=== PATIENT | female | born 1950 | race Caucasian/White ===

== ENCOUNTER 2017-10-07 12:40 | Inpatient (IN) | payer MEDICARE, OTHER ==
[~2017-10-07] VITALS: Ht 157.5 cm; Wt 58.6 kg
[2017-10-07] VITALS (9 sets, daily range): BP systolic 127–214; BP diastolic 77–104
--- NOTE | ~2017-10-07 | CN ---
PATIENT NAME:MARITA PAULINO MEDICAL RECORD: [id number] : 52 LOCATION:[facility] ADMIT DATE: 10/09/17 ACCOUNT: [id number] CONSULTING PHYSICIAN: GUS GERMAN MD REFERRING PHYSICIAN: OLLIE AKBAR MD DATE OF CONSULTATION: 10/08/2017 HISTORY OF PRESENT ILLNESS: A 67-year-old female with no known history of coronary artery disease, she has a hypertension that is more difficult to control as of late, requiring 3 medications, admitted with hypertension and angina. She states over the past month has intermittent chest tightness. PAST MEDICAL HISTORY: 1. History of hypertension. 2. Scoliosis. 3. Right AKA. 4. Dyslipidemia. SOCIAL HISTORY: . Nonsmoker and nondrinker. She is able to take care of her ADLs despite a right prosthesis. REVIEW OF SYSTEMS,: The patient reports easy bruising but reports no swollen glands. The patient reports no fever, no night sweats, no significant weight gain, no significant weight loss. No significant exercise tolerance. The patient reports no dry eyes, no irritation, no vision change. Patient reports no difficulty hearing and no ear pain. Patient reports no frequent nose bleeds or nose and sinus problems. Patient reports on arm pain on exertion. No shortness of breath while lying down. No history of heart murmur. Patient reports no cough, no wheezing or coughing up blood. Patient reports no abdominal pain, no vomiting. Normal appetite. No diarrhea and not vomiting blood. No nausea and no constipation. Patient reports no incontinence. No difficulty urinating. No hematuria. No increased frequency. Patient reports no muscle aches. No weakness, no arthralgias, no back pain. No swelling of the extremities. Patient reports no abnormal mole, no jaundice, no rashes. Reports no loss of consciousness. No weakness and no numbness. No seizures, dizziness, or headaches. The patient reports no depression, no sleep disturbance, feeling safe in a relationship and no alcohol abuse. Patient reports on fatigue. Reports no runny nose or sinus pressure. No itching, no hives, and no frequent sneezing. PHYSICAL EXAMINATION: GENERAL: A pleasant female in no acute distress. VITAL SIGNS: 139/99, pulse 116 and regular. HEENT: Normocephalic, atraumatic. NECK: No bruits noted. HEART: Regular. II/ systolic ejection murmur, somewhat tachycardic. LUNGS: Good air excursion. ABDOMEN: Soft, nontender. Questionable left abdominal bruit. EXTREMITIES: Pulses are 2+ on the left and prosthesis on the right. IMPRESSION: Difficult to control hypertension on 3 medications. PLAN: We will plan for cardiac catheterization as well as renal arteriography. TRANSINT:[id number] Voice Confirmation ID: [id number] DOCUMENT ID: [id number] CONSULT REPORT [id number] MARITA PAULINO,GUS Howard MD at 1116 CC: [id number] DICTATION DATE: 10/08/17 0853 REGISTERED PHARMACY TECHNICIAN: 10/08/17 0945 ADM IN [place] [id number] [place] [address]
--- NOTE | ~2017-10-07 | HEMODYNAMI ---
PATIENT:MARITA PAULINO MEDICAL RECORD: [id number] : 52 LOCATION:[facility] [address] [facility] [id number] ADMISSION DATE: 10/07/17 Generatedon:10/08/201714:33 Patient name: MARITA PAULINO Patient #: [id number] SSN: DO B: 1950 Date of study: 10/08/2017 Page: Of Hemodynamic Procedure Report Patient Data Patient Demographics Procedure consent was obtained First Name: MARITA Gender: Female Last Name: LORA : 1950 Middle Initial: JAH Age: 67 year(s) Patient #: [id number] Race: Unknown Additional ID: [id number] Contact details [address]: [address] [place] [address] State: [place] City: [place] Zip code: [address] Past Medical History Allergies: No known allergies Admission Admission Data Admission Date: 10/07/2017 Admission Time: 16:24 Room #: D2123 Lab Results Lab Result Date: 10/08/2017 Lab Result Time: 0:00 Biochemistry Name Units Result Min Max BUN mg/dl 17 --(---*)-- 7 18 Creatinine mg/dl 0.9 --(-*--)-- 0.6 1.3 CBC Name Units Result Min Max Hemoglobin g/dl 12.1 *-(----)-- 13.5 17.5 Procedure Procedure Types Cath Procedure Diagnostic Procedure [facility] w/Coronaries Sedation Charges Moderate Sedation up to 15 minutes Procedure Description Procedure Date Procedure Date: 10/08/2017 Procedure Start Time: 14:16 Procedure End Time: 14:33 Procedure Staff Name Function Yang Gomez MD Performing Physician Kerri Brewer RT Monitor Oliva Mancia RT Scrub Karan Prieto RN Nurse Procedure Data Cath Procedure Fluoroscopy Diagnostic fluoroscopy Total fluoroscopy Time: 2.4 time: 2.4 min min Diagnostic fluoroscopy Total fluoroscopy dose: 369 dose: 369 mGy mGy Contrast Material Contrast Material Type Amount (ml) Isovue 370 63 Entry Location Entry Primary Successful Side Size Upsize Upsize Entry Closure Succes sful Closure Location (Fr) 1 (Fr) 2 (Fr) Remarks Device Remarks Femoral Left 5 Fr Exoseal artery Estimated blood loss: 5 ml Diagnostic catheters Device Type Used For End Catheter Placement MULTIPACK JL 4.0 5Fr Left Coronary catheter Angiography MULTIPACK 3DRC 5Fr Right Coronary catheter Angiography MULTIPACK 3DRC 5Fr Renal catheter arteriography with flush -selective MULTIPACK Pigtail 5 Fr LV Angiography catheter Procedure Complications No complications Procedure Medications Medication Administration Route Dosage 0.9% NaCl I.V. 100 ml/hr Oxygen etCO2 Nasal cannula 2 l/min Heparin Flush Bag added to field 2 bags (1000units/500ml NS) Lidocaine 2% added to field 20 Versed I.V. 2 mg Fentanyl I.V. 100 mcg Lopressor I.V. 5 mg Versed I.V. 2 mg Hemodynamics Rest HGB: 12.1 (g/dl) Heart Rate: 142 (bpm) Pressure Samples Time Site Value (mmHg) Purpose Heart Use Rate(bpm) 14:24 LV 151/4,7 EDP 76 Gradients Valve Time Site Site Mean SEP/DFP Peak To Heart Use 1 2 (mmHg) (sec/min) Peak Rate (mmHg) (bpm) Aortic 14:25 LV AO 91 Snapshots Pre Cath Intra NCS Post Cath Vital Signs Time Heart Resp SPO2 etCO2 NIBP (mmHg) Rhythm Pain Sedation Rate (ipm) (%) (mmHg) Status Level (bpm) 13:56:51 122 27 100 27 150/106(120) ST 0 (11) 10(A) , No pain 14:01:35 139 13 100 36.8 140/95(113) ST 0 (11) 10(A) , No pain 14:06:18 135 18 100 31.5 133/84(108) ST 0 (11) 10(A) , No pain 14:10:56 104 14 99 0 112/81(94) ST 0 (11) 10(A) , No pain 14:15:33 91 14 99 27.7 112/77(100) NSR 0 (11) 10(A) , No pain 14:20:07 109 19 100 25.5 130/92(113) NSR 0 (11) 10(A) , No pain 14:24:48 118 15 100 37.5 135/84(101) NSR 0 (11) 10(A) , No pain 14:29:30 113 9 99 33 117/75(91) NSR 0 (11) 10(A) , No pain Medications Time Medication Route Dose Verified Delivered Reason Notes Eff ectiveness by by 13:55:15 0.9% NaCl I.V. 100 Karan Karan Per ml/hr Conner Prieto physician RN RN 13:55:28 Oxygen etCO2 2 Karan Karan Per Nasal l/min Conner Prieto physician cannula RN RN 13:55:38 Heparin Flush added 2 Karan Karan used for Bag to bags Lorigan Lorigan procedure (1000units/500ml field RN RN NS) 13:55:49 Lidocaine 2% added 20ml Karan Karan for local to vial Lorigan Lorigan anesthetic field RN RN 14:05:43 Versed I.V. 2 mg Karan Karan for Lorigan Lorigan sedation RN RN 14:05:50 Fentanyl I.V. 100 Karan Karan for mcg Lorigan Lorigan sedation RN RN 14:11:18 Lopressor I.V. 5 mg Karan Karan for Lorigan Lorigan arrhythmia RN RN 14:18:02 Versed I.V. 2 mg Karan Karan for Lorigan Lorigan sedation RN overhauler helper Log Time Note 13:30:29 Time tracking: Regular hours (M-F 7:00 - 5:00) 13:30:33 Plan of Care:Hemodynamics will remain stable., Cardiac rhythm will remain stable., Comfort level will be maintained., Respiratory function will remain adequate., Patient/ family verbilizes understanding of procedure., Procedure tolerated without complication., Recovers from procedure without complications.. 13:30:35 Signed procedure consent form obtained from patient. 13:32:55 H&P Date Dictated: 10/07/2017 Within 30 days and on chart.. 13:33:11 Patient allergic to No known allergies 13:33:45 Lab Result : BUN 17 mg/dl 13:33:45 Lab Result : Hemoglobin 12.1 g/dl 13:33:45 Lab Result : Creatinine 0.9 mg/dl 13:35:36 Karan Prieto RN sent for patient. Start room use. 13:49:21 Patient received from PCU to CCL 1 Alert and oriented. Tansferred to table in Supine position. 13:49:22 Warm blankets applied, and santa hugger turned on for patient comfort. 13:49:22 Correct patient and procedure confirmed by team. 13:49:23 ECG and BP/O2 sat monitors applied to patient. 13:49:24 Full Disclosure recording started 13:55:15 0.9% NaCl 100 ml/hr I.V. was administered by Karan Prieto RN; Per physician; 13:55:28 Oxygen 2 l/min etCO2 Nasal cannula was administered by Karan Prieto RN; Per physician; 13:55:38 Heparin Flush Bag (1000units/500ml NS) 2 bags added to field was administered by Karan Prieto RN; used for procedure; 13:55:49 Lidocaine 2% 20ml vial added to field was administered by Karan Prieto RN; for local anesthetic; 13:55:53 Vital chart was started 13:58:41 Baseline sample Acquired. 13:58:44 Rhythm: sinus tachycardia 13:58:48 Pre-procedure instructions explained to patient. 13:58:49 Pre-op teaching completed and patient verbalized understanding. 13:58:58 Family in patients room. 13:59:00 Patient NPO since Midnight. 14:00:57 Is the patient allergic to Iodine/contrast media? No. 14:00:59 Is patient on blood thinner?Yes 14:01:01 ACC The patient was administered the following blood thiners within the last 24 hours: ACCPlavix 14:01:03 Patient diabetic? No. 14:01:07 Previous problem with sedation/anesthesia? No ? 14:01:09 Snore? Yes 14:01:10 Sleep apnea? No 14:01:11 Deviated septum? No 14:01:11 Opens mouth fully? Yes 14:01:12 Sticks out tongue? Yes 14:01:14 Airway obstruction? No ? 14:01:15 Dentures? No ? 14:01:19 Pre procedure: right dorsailis pedis pulse 2+ Normal; easily identifiable; not easily obliterated 14:01:21 Patient pain scale 0/10 ?. 14:01:27 IV patent on arrival in left forearm with 0.9% NaCl at [facility]. 14:01:30 Lab results completed and on chart. 14:01:38 Left groin area was prepped with chlora-prep and draped in sterile fashion 14:01:39 Alarms reviewed by R. N. 14:01:39 Sharps counted by scrub and verified by R.N. 14:01:47 Use device set Femoral Dx 14:01:48 ACIST Syringe (16436) opened to sterile field. 14:01:48 Bag Decanter (2002S) opened to sterile field. 14:01:49 Medline Cath Pack ([id number]) opened to sterile field. 14:01:49 DIAGNOSTIC WIRE .035 260cm J wire (467650) opened to sterile field. 14:01:50 ACIST Hand Control (87873) opened to sterile field. 14:01:51 ACIST Manifold (28326) opened to sterile field. 14:01:51 DIAGNOSTIC Multipack 5Fr catheter set (CK2510) opened to sterile field. 14:01:52 Tegaderm 4 x 4 (1626W) opened to sterile field. 14:01:53 SHEATH Prelude 5Fr 0.035 (ROG-2O-52-035) opened to sterile field. 14:03:49 Zero performed for pressure channel P1 14:05:12 Final Timeout: patient, procedure, and site verified with staff and physician. All members of the team are in agreement. 14:05:19 Left groin site verified by team. 14:05:22 Physical assessment completed. ASA score P 2 - A patient with mild systemic disease as per Yang Gomez MD. 14:05:26 Sedation plan: IV Moderate Sedation Medication:Versed, Fentanyl 14:05:43 Versed 2 mg I.V. was administered by Karan Prieto RN; for sedation; 14:05:50 Fentanyl 100 mcg I.V. was administered by Karan Prieto RN; for sedation; 14:11:18 Lopressor 5 mg I.V. was administered by Karan Prieto RN; for arrhythmia; 14:16:09 Procedure started. 14:16:15 Local anesthetic to left femerol artery with Lidocaine 2% by Yang Gomez MD.INITIAL ACCESS ONLY 14:17:23 A 5 Fr sheath was inserted into the Left Femoral artery 14:17:50 A MULTIPACK JL 4.0 5Fr catheter was advanced over the wire and used for Left Coronary Angiography. 14:18:02 Versed 2 mg I.V. was administered by Karan Prieto RN; for sedation; 14:20:05 Catheter removed. 14:20:13 A MULTIPACK 3DRC 5Fr catheter was advanced over the wire and used for Right Coronary Angiography. 14:22:02 A MULTIPACK 3DRC 5Fr catheter was advanced over the wire and used for Renal arteriography with flush -selective. 14:22:54 Catheter removed. 14:23:00 A MULTIPACK Pigtail 5 Fr catheter was advanced over the wire and used for LV Angiography. 14:26:05 Catheter removed. 14:26:26 Sheath removed intact; hemostasis achieved with Exoseal to the Left Femoral artery. 14:26:27 Procedure ended.(Physican Out) 14:27:32 Fluoroscopy time 02.40 minutes. 14::41 Fluoroscopy dose: 369 mGy 14::41 Flurop Dose total: 369 14:27:56 Contrast amount:Isovue 370 63ml. 14:27:58 Sharps counted by scrub and verified by R.N. 14:28:00 Insertion/operative site no bleeding no hematoma. 14:28:02 Post-op/insertion site Left Femoral artery dressed using a 4 x 4 and Tegaderm. 14:28:06 Post left femerol artery:stable, clean and dry 14:28:08 Post Procedure Pulses reassessed and unchanged 14:28:20 Post procedure rhythm: unchanged. 14:28:25 Estimated blood loss: 5 ml 14:28:27 Post procedure instruction explained to patient.Patient verbalizes understanding. 14:28:35 Patient needs reinforcement of post procedure teaching. 14:28:46 Procedure type changed to Cath procedure, Diagnostic procedure, LHC, LHC w/Coronaries, Sedation Charges, Moderate Sedation up to 15 minutes 14:28:51 EXOSEAL 5Fr (EX500) opened to sterile field. 14:29:15 Procedure Complication : No complications 14:29:17 See physician's report for complete and final results. 14:30:07 Procedure and supply charges have been captured, reviewed, submitted and are correct. 14:33:04 Vital chart was stopped 14:33:07 Report given to PCU. 14:33:09 Patient transfered to PCU with Bed. 14:33:21 Procedure ended. 14:33:21 Full Disclosure recording stopped 14:33:24 End room use (Document Last) Device Usage Item Name Manufacture Quantity Catalog Number Hospital Part Current M inimal Lot# / Charge Number Stock Stock Serial# Code ACIST Syringe Acist 1 75153 795410 296568 343093 2 0 (33154) [employer] Bag Decanter Microtek 1 2001S 179354 44691 119834 5 () Medical Inc. Medline Cath Cardinal 1 [id number] 084607 94561 362601 5 Pack Health ([id number]) DIAGNOSTIC WIRE [facility] 1 472732 902551 172285 115725 3 0 .035 260cm J wire (564750) ACIST Hand Acist 1 25442 819699 450405 875711 5 Control (30082) [employer] Inc ACIST Manifold Acist 1 75920 915645 043983 364445 5 (76469) [employer] Inc DIAGNOSTIC Cardinal 1 HT3206 149436 67255 611480 3 0 Multipack 5Fr Health catheter set (TR3409) Tegaderm 4 x 4 3M 1 1626W 317547 911174 696949 5 (1626W) SHEATH Prelude Merit 1 [id number]-40-035 909990 638670 624440 5 5Fr 0.035 Medical ([id number]-1G-14-035) MULTIPACK JL Cardinal 1 636296 5 4.0 5Fr Health catheter MULTIPACK 3DRC Cardinal 1 099000 5 5Fr catheter Health MULTIPACK Cardinal 1 017837 5 Pigtail 5 Fr Health catheter EXOSEAL 5Fr Cardinal 1 EX500 792616 938113 657890 1 0 (EX500) Health Signature Audit [place] Stage Time Signature Unsigned Intra-Procedure 10/08/2017 Kerri 2:33:37 PM Counts RT(R) Signatures Monitor : Kerri Signature : Counts RT Date : Time : [address] [address]
--- NOTE | ~2017-10-07 | TEE ---
PATIENT:MARITA PAULINO MEDICAL RECORD: [id number] LOCATION:[place] [address] AGE OF PATIENT: 67 ADMISSION DATE: 10/09/17 SEX: F REFERRING PHYSICIAN: INTERPRETING PHYSICIAN: NICK LACEY MD TRANSESOPHAGEAL ECHOCARDIOGRAM Date: 10/13/17 CANDIDA CHARGE Y INDICATIONS: CABG PREMEDICATIONS: PATIENT'S RESPONSE PROCEDURE DOPPLER MEASUREMENTS: LVIT LA PA RA LVOT RVOT Asc. Ao AV Gradient Peak AV Mean AV Area MV Gradient Peak MV Mean MV Area INTERPRETATION: LVD: 2.3 LVS: 1.1 Doppler: 2-D: COLOR FLOW DOPPLER NORMAL SALINE STUDY: MISCELLANOUS: DIAGNOSIS: PLAN: Drug Safety Scientist:3 Dr. [employer] Programmer: Felix DOMINGUEZ COMMENTS: DATE OF SERVICE: 10/13/2017 PROCEDURE: Transesophageal echo for evaluation of valvular structures during bypass surgery. FINDINGS: 1. Left ventricular chamber size is within normal limits. Left ventricular systolic function is normal. Overall ejection fraction estimated at 60%. 2. Left atrium, right atrium, and right ventricular chamber sizes are within TRANSESOPHAGEAL ECHOCARDIOGRAM REPORT [id number] MARITA PAULINO normal limits. 3. Valvular structures have normal structure and motion. 4. Doppler interrogation reveals mild mitral regurgitation, mild aortic insufficiency. No other valvular insufficiency or stenosis. 5. No evidence of pericardial effusion or left ventricular thrombus. TRANSINT:[id number] Voice Confirmation ID: [id number] DOCUMENT ID: [id number] at 1208 CC: [id number] DICTATION DATE: 10/14/17 1101 MATTRESS AND FOUNDATION SEWER: 10/14/17 1511 ADM IN [place] [id number] [place] [address]
--- NOTE | ~2017-10-07 | OP ---
PATIENT NAME: MARITA PAULINO MEDICAL RECORD: [id number] :52 LOCATION:[facility] ADMISSION DATE:10/09/17 SURGEON: MARKY RICHTER MD DATE OF OPERATION: 10/13/2017 SURGEON: Marky Richter MD TOP FLAVOR ATTENDANT: NOBLE Ballesteros OPERATION PERFORMED: Coronary artery bypass graft times 4 (left internal mammary artery to LAD, reverse saphenous vein graft from aorta to first diagonal, aorta to proximal branch obtuse marginal, and aorta to right coronary artery). PREOPERATIVE DIAGNOSIS: Coronary artery disease. POSTOPERATIVE DIAGNOSIS: Coronary artery disease. ANESTHESIA: General endotracheal anesthesia. ESTIMATED BLOOD LOSS: Total cardiopulmonary bypass with Cell Saver retransfusion and 1 unit packed red blood cells, preoperative anemia. SPECIMENS: None. CONDITION: Stable. DISPOSITION: CV ICU. COMPLICATIONS: None. OPERATIVE FINDINGS: 1. Transesophageal echocardiography revealed good contractility with no valvular incompetence or stenosis. 2. Greater saphenous vein was a dual system with a larger branch more posterior requiring several bridging incisions, but was adequate with the smallest caliber portion used for the diagonal graft. 3. Internal mammary artery was a good conduit, the LAD was a 1.25 mm vessel with severe proximal disease. Anastomosis with 8-0 Prolene. Good Doppler signal after anastomosis and after reversal of heparin. 4. Diagonal was a 1.25 mm vessel with severe disease. 5. Proximal branch obtuse marginal 1.5 mm vessel with severe disease. 6. Right coronary artery 1.75 mm vessel with severe disease, the posterior descending artery was significantly smaller. 7. Supraventricular tachycardia after induction of anesthesia that eventually resolved and after separation from cardiopulmonary bypass despite amiodarone, responded to esmolol. OPERATIVE INDICATION: The patient with previous right below-knee amputation and left leg with some chronic contracture due to spina bifida with unstable angina and multivessel coronary artery disease. OPERATIVE DESCRIPTION OF PROCEDURE: The patient was brought to the operating suite. General anesthesia was obtained, the patient was prepped and draped. Greater saphenous vein was harvested in the left leg using bridging incisions. OPERATIVE REPORT [id number] MARITA PAULINO Side branches were clipped. After removal, leg was irrigated and closed in 2 layers. Median sternotomy incision was made. Subcutaneous tissue was divided by electrocautery. The sternum was divided with a saw. The left hemisternum was elevated. Left pleural cavity was entered. Left internal mammary artery and vein was taken as a pedicle graft. Sternal retractor was placed. Pericardium was opened. Heparin was given. Aorta was cannulated. Dual stage venous cannula was inserted. The patient was placed on cardiopulmonary bypass after activated clotting time was appropriately elevated. The internal mammary artery was clipped distally and made ready for anastomosis. The site for distal anastomosis was selected. The patient was cooled. Crossclamp was placed. Cardioplegia was given through the aortic root vent and repeated at 15-minute intervals with cross clamp time. Distal anastomosis was performed in standard technique. Proximal anastomosis in single cross-clamp technique. Aortic root was de-aired by removing the cross clamp, venting the root, tying the proximal anastomoses, and then restoring the flow after deairing the vein grafts. Proximal and distal anastomotic sites were inspected for bleeding. The patient resumed a spontaneous rhythm after defibrillation and was hemodynamically stable, weaned from cardiopulmonary bypass after full rewarming and was stable. The patient was decannulated. The cannula sites were oversewn. Protamine was given. Thorough irrigation was undertaken. A drain was placed in the mediastinum and left pleural cavity. A ventricular pacing wire was placed. Left chest was evacuated and irrigated. The internal mammary harvest site was assured to be hemostatic. Pericardial fat was loosely reapproximated in the midline. Sternum was closed with wires. Fascia was closed. Subcutaneous tissue was closed. Skin was closed. Dermabond was placed. The needle and sponge counts reported correct. The patient was taken to the ICU in stable condition. TRANSINT:[id number] Voice Confirmation ID: [id number] DOCUMENT ID: [id number] MARKY RICHTER MD at 0735 CC: GUS GERMAN MD [id number] DICTATION DATE: 10/13/17 1404 EDUCATION COURSES SALES REPRESENTATIVE: 10/13/17 1426 ADM IN [place] [id number]
--- NOTE | ~2017-10-07 | OP ---
PATIENT NAME: MARITA PAULINO MEDICAL RECORD: [id number] :52 LOCATION:[facility] ADMISSION DATE:10/09/17 SURGEON: GUS GERMAN MD DATE OF OPERATION: 10/08/2017 PROCEDURE: Left heart catheterization, selective coronary angiography plus renal arteries, left femoral artery approach. CATHETERS: A 5-Upper Sorbian sheath, 5/4 left and right Sergio, 5/4 pig. The procedure was well tolerated. The patient was returned to the figueroa. Sheath removed. ExoSeal device placed. FINDINGS: Left ventriculography in 30-degree MCNEILL view: Normal wall motion, normal systolic function. CORONARY ANATOMY: LEFT MAIN: Left main is free of disease. LAD: The takeoff of the first diagonal shows a tight stenosis of 90% and then multiple stenoses down the mid portion of 80%. CIRCUMFLEX: Has discrete 90% stenosis in its mid portion. RIGHT CORONARY ARTERY: Right coronary artery has an ostial stenosis of 90%. The right renal artery was selectively engaged. It shows a smooth-walled right renal artery with no evidence of stenosis left. The left renal artery was selectively engaged. It shows a smooth-walled vessel, free of disease. IMPRESSION: Multivessel coronary artery disease, normal LV systolic function, no evidence of renal vascular disease or renal vascular hypertension. CT surgery is consulted for possible coronary artery bypass grafting. TRANSINT:[id number] Voice Confirmation ID: [id number] DOCUMENT ID: [id number] GUS GERMAN MD at 1116 CC: [id number] DICTATION DATE: 10/08/17 1438 MARRIAGE AND FAMILY TEACHER: 10/08/17 1447 ADM IN [place] [id number] [place] [address]
[2017-10-07] MEDS ORDERED: PRINIVIL10 MG PO (12:50)
[2017-10-07] MEDS ORDERED: CYCLOBENZAPRINE10 MG PO (12:50)
[2017-10-07] MEDS ORDERED: TOPROL XL100 MG PO ×2 (12:50→21:04)
[2017-10-07] MEDS ORDERED: ASPIRIN81 MG PO (12:51)
[2017-10-07] MEDS ORDERED: ZANTAC300 MG PO (12:51)
[2017-10-07] MEDS ORDERED: ZOCOR40 MG PO (12:51)
[2017-10-07 13:11] LABS: BASOPHILS 0.2 % (0-2); EOSINOPHILS 3.9 % (0-7); HEMATOCRIT 37.3 % (36.0-48.0); HEMOGLOBIN 12.1 g/dL (12-16); LYMPHOCYTES 38.7 % (15-50); MCH 28.6 pg (26.0-34.0); MCHC 32.4 g/dL (31.0-37.0); MCV 88.2 fL (80.0-100.0); MEAN PLATELET VOLUME 10.9 fL (7.4-10.4); MONOCYTES 7.5 % (2-11); NEUTROPHILS 49.7 % (40-80); PLATELET COUNT 224 10x3/uL (130-400); RBC 4.23 10x6/uL (4.00-5.40); RDW 13.7 % (11.5-14.5); WBC 4.8 10x3/uL (4.8-10.8)
[2017-10-07 13:30] LABS: APTT 28.9 SECONDS (22.8-39.4); INR 0.92 (0.85-1.17)
[2017-10-07 13:42] LABS: ALBUMIN 3.9 g/dL (3.4-5.0); ALKALINE PHOSPHATASE 74 U/L (46-116); ALT (SGPT) 26 U/L (10-68); BILIRUBIN - TOTAL 0.29 mg/dL (0.2-1.3); CALC OSMOLALITY 283 mosm/kg (275-300); CALCIUM 9.3 mg/dL (8.5-10.1); CHLORIDE - SERUM 105 mmol/L (98-107); CREATININE - SERUM 0.9 mg/dL (0.6-1.3); GLUCOSE 115 mg/dL (74-106); POTASSIUM - SERUM 3.9 mmol/L (3.5-5.1); PROTEIN - SERUM 7.4 g/dL (6.4-8.2); SODIUM 141 mmol/L (136-145); UREA NITROGEN 17 mg/dL (7-18); eGFR NON AFRICAN AMERICAN 66 mL/min (90-120)
[2017-10-07 13:53] LABS: LIPASE 100 U/L (73-393)
[2017-10-07 14:04] LABS: TROPONIN-I < 0.017 ng/mL (0.000-0.060)
[2017-10-07 17:17] LABS: CREATINE KINASE 47 UL (21-215); TROPONIN-I < 0.017 ng/mL (0.000-0.060)
[2017-10-07] MEDS ORDERED: HYDROCODONE-APA1 TAB PO (22:18)
[2017-10-07 23:16] LABS: CKMB 1.2 U/L (0.0-3.6); CREATINE KINASE 58 UL (21-215)
[2017-10-07 23:17] LABS: TROPONIN-I < 0.017 ng/mL (0.000-0.060)
[2017-10-08] VITALS (7 sets, daily range): BP systolic 115–149; BP diastolic 74–99; BMI 23.8
[2017-10-08 05:24] LABS: CKMB 0.8 U/L (0.0-3.6); CREATINE KINASE 43 UL (21-215); TROPONIN-I < 0.017 ng/mL (0.000-0.060)
[2017-10-08 12:43] LABS: BASOPHILS 0.2 % (0-2); HEMOGLOBIN 11.2 g/dL (12-16); IMMATURE GRANULOCYTES 0.2 % (0-5); LYMPHOCYTES 33.3 % (15-50); MCH 28.8 pg (26.0-34.0); MEAN PLATELET VOLUME 11.3 fL (7.4-10.4); MONOCYTES 6.9 % (2-11); NEUTROPHILS 56.4 % (40-80); PLATELET COUNT 199 10x3/uL (130-400); RBC 3.89 10x6/uL (4.00-5.40); WBC 4.9 10x3/uL (4.8-10.8)
[2017-10-08 13:12] LABS: CALC OSMOLALITY 280 mosm/kg (275-300); CALCIUM 9.1 mg/dL (8.5-10.1); CARBON DIOXIDE 30.1 mmol/L (21.0-32.0); CHLORIDE - SERUM 105 mmol/L (98-107); CREATININE - SERUM 0.8 mg/dL (0.6-1.3); GLUCOSE 99 mg/dL (74-106); SODIUM 140 mmol/L (136-145); UREA NITROGEN 18 mg/dL (7-18); eGFR NON AFRICAN AMERICAN 76 mL/min (90-120)
[2017-10-08 17:02] LABS: PLT FUNCT.(P2Y12) PLAVIX 190 PRU (194-418)
[2017-10-09] VITALS (7 sets, daily range): BP systolic 122–162; BP diastolic 78–100
[2017-10-09 06:20] LABS: BASOPHILS 0.2 % (0-2); EOSINOPHILS 1.2 % (0-7); HEMATOCRIT 32.8 % (36.0-48.0); HEMOGLOBIN 10.5 g/dL (12-16); IMMATURE GRANULOCYTES 0.2 % (0-5); LYMPHOCYTES 25.3 % (15-50); MCH 28.7 pg (26.0-34.0); MCV 89.6 fL (80.0-100.0); MEAN PLATELET VOLUME 11.3 fL (7.4-10.4); MONOCYTES 7.1 % (2-11); PLATELET COUNT 214 10x3/uL (130-400); RBC 3.66 10x6/uL (4.00-5.40); RDW 14.1 % (11.5-14.5)
[2017-10-09 06:31] LABS: WBC 6.5 10x3/uL (4.8-10.8)
[2017-10-09 06:37] LABS: CALC OSMOLALITY 284 mosm/kg (275-300); CALCIUM 8.4 mg/dL (8.5-10.1); CARBON DIOXIDE 29.5 mmol/L (21.0-32.0); CHLORIDE - SERUM 109 mmol/L (98-107); CREATININE - SERUM 0.8 mg/dL (0.6-1.3); GLUCOSE 100 mg/dL (74-106); POTASSIUM - SERUM 4.2 mmol/L (3.5-5.1); SODIUM 143 mmol/L (136-145); UREA NITROGEN 13 mg/dL (7-18); eGFR NON AFRICAN AMERICAN 76 mL/min (90-120)
[2017-10-09] MEDS ORDERED: FLECTOR1 PATCH TRANSDERM (16:19)
[2017-10-10] VITALS: BP 133/94
[2017-10-10 05:36] VITALS: BP 142/89
[2017-10-10 05:58] LABS: BASOPHILS 0.2 % (0-2); EOSINOPHILS 2.9 % (0-7); HEMATOCRIT 31.4 % (36.0-48.0); HEMOGLOBIN 10.1 g/dL (12-16); IMMATURE GRANULOCYTES 0.2 % (0-5); LYMPHOCYTES 33.5 % (15-50); MCH 28.6 pg (26.0-34.0); MCHC 32.2 g/dL (31.0-37.0); MEAN PLATELET VOLUME 11.4 fL (7.4-10.4); MONOCYTES 9.5 % (2-11); NEUTROPHILS 53.7 % (40-80); PLATELET COUNT 193 10x3/uL (130-400); RBC 3.53 10x6/uL (4.00-5.40); RDW 14.1 % (11.5-14.5)
[2017-10-10 06:03] LABS: WBC 4.8 10x3/uL (4.8-10.8)
[2017-10-10 06:31] LABS: CALC OSMOLALITY 283 mosm/kg (275-300); CALCIUM 8.6 mg/dL (8.5-10.1); CARBON DIOXIDE 29.1 mmol/L (21.0-32.0); CHLORIDE - SERUM 108 mmol/L (98-107); CREATININE - SERUM 0.7 mg/dL (0.6-1.3); GLUCOSE 86 mg/dL (74-106); SODIUM 143 mmol/L (136-145); UREA NITROGEN 13 mg/dL (7-18); eGFR NON AFRICAN AMERICAN 89 mL/min (90-120)
[2017-10-10 07:50] VITALS: BP 165/87
[2017-10-10 10:49] LABS: APTT 32.4 SECONDS (22.8-39.4); INR 0.95 (0.85-1.17); PROTIME 12.3 SECONDS (11.6-15.0)
[2017-10-10 11:12] VITALS: BP 146/76
[2017-10-10 12:16] LABS: ALBUMIN 3.1 g/dL (3.4-5.0); ALKALINE PHOSPHATASE 60 U/L (46-116); ALT (SGPT) 19 U/L (10-68); BILIRUBIN - TOTAL 0.24 mg/dL (0.2-1.3); CHOLESTEROL, TOTAL 124 mg/dL (0-200); PHOSPHOROUS 3.2 mg/dL (2.5-4.9); PROTEIN - SERUM 6.1 g/dL (6.4-8.2); T4 THYROXIN - FREE 1.09 ng/dL (0.76-1.46); URIC ACID 3.9 mg/dL (2.6-7.2)
[2017-10-10 16:09] VITALS: BP 152/83
[2017-10-10 20:00] VITALS: BP 193/89
[2017-10-11] VITALS (8 sets, daily range): BP systolic 130–173; BP diastolic 73–101
[2017-10-11 01:22] LABS: HEMATOCRIT 29.7 % (36.0-48.0); HEMOGLOBIN 9.6 g/dL (12-16); MCH 28.4 pg (26.0-34.0); MCHC 32.3 g/dL (31.0-37.0); MCV 87.9 fL (80.0-100.0); RBC 3.38 10x6/uL (4.00-5.40); RDW 13.8 % (11.5-14.5); WBC 5.7 10x3/uL (4.8-10.8)
[2017-10-11 05:35] LABS: BASOPHILS 0.4 % (0-2); EOSINOPHILS 3.3 % (0-7); HEMATOCRIT 31.3 % (36.0-48.0); HEMOGLOBIN 10.1 g/dL (12-16); IMMATURE GRANULOCYTES 0.2 % (0-5); LYMPHOCYTES 33.3 % (15-50); MCH 28.4 pg (26.0-34.0); MCHC 32.3 g/dL (31.0-37.0); MCV 87.9 fL (80.0-100.0); MONOCYTES 7.4 % (2-11); NEUTROPHILS 55.4 % (40-80); PLATELET COUNT 191 10x3/uL (130-400); RBC 3.56 10x6/uL (4.00-5.40); RDW 13.9 % (11.5-14.5); WBC 5.7 10x3/uL (4.8-10.8)
[2017-10-11 06:22] LABS: CALC OSMOLALITY 281 mosm/kg (275-300); CARBON DIOXIDE 28.9 mmol/L (21.0-32.0); CHLORIDE - SERUM 107 mmol/L (98-107); CREATININE - SERUM 0.7 mg/dL (0.6-1.3); GLUCOSE 100 mg/dL (74-106); POTASSIUM - SERUM 3.9 mmol/L (3.5-5.1); SODIUM 141 mmol/L (136-145); UREA NITROGEN 15 mg/dL (7-18); eGFR NON AFRICAN AMERICAN 89 mL/min (90-120)
[2017-10-11 07:14] LABS: APPEARANCE HAZY (CLEAR); BILIRUBIN NEGATIVE (NEGATIVE); COLOR STRAW (YELLOW); GLUCOSE NEGATIVE (NEGATIVE); KETONE NEGATIVE (NEGATIVE); NITRITE POSITIVE (NEGATIVE); PROTEIN NEGATIVE (NEGATIVE); SPECIFIC GRAVITY 1.005 (1.005-1.020); UROBILINOGEN NORMAL (NORMAL)
[2017-10-11 07:15] LABS: BACTERIA MODERATE /hpf (NONE SEEN); EPITHELIAL CELLS 0-5 /hpf (0-5); RED CELLS - URINE NONE SEEN /hpf (0-5)
[2017-10-12 04:30] VITALS: BP 149/92
[2017-10-12 05:53] LABS: BASOPHILS 0.2 % (0-2); HEMOGLOBIN 9.8 g/dL (12-16); IMMATURE GRANULOCYTES 0.2 % (0-5); LYMPHOCYTES 23.6 % (15-50); MCH 28.7 pg (26.0-34.0); MCHC 32.7 g/dL (31.0-37.0); MCV 87.7 fL (80.0-100.0); MEAN PLATELET VOLUME 11.5 fL (7.4-10.4); MONOCYTES 8.8 % (2-11); NEUTROPHILS 64.2 % (40-80); PLATELET COUNT 218 10x3/uL (130-400); RBC 3.42 10x6/uL (4.00-5.40); RDW 13.9 % (11.5-14.5); WBC 6.1 10x3/uL (4.8-10.8)
[2017-10-12 06:06] LABS: CALC OSMOLALITY 282 mosm/kg (275-300); CALCIUM 8.9 mg/dL (8.5-10.1); CARBON DIOXIDE 26.7 mmol/L (21.0-32.0); CHLORIDE - SERUM 106 mmol/L (98-107); CREATININE - SERUM 0.7 mg/dL (0.6-1.3); GLUCOSE 110 mg/dL (74-106); POTASSIUM - SERUM 3.9 mmol/L (3.5-5.1); SODIUM 141 mmol/L (136-145); UREA NITROGEN 16 mg/dL (7-18); eGFR NON AFRICAN AMERICAN 89 mL/min (90-120)
[2017-10-12 07:55] VITALS: BP 132/85
[2017-10-12 11:33] VITALS: BP 147/84
[2017-10-12 15:30] VITALS: BP 150/97
[2017-10-12 21:54] VITALS: BP 165/95
[2017-10-13] VITALS (43 sets, daily range): BP systolic 100–144; BP diastolic 61–97
[2017-10-13 04:32] LABS: BASOPHILS 0.2 % (0-2); EOSINOPHILS 3.3 % (0-7); HEMATOCRIT 31.2 % (36.0-48.0); HEMOGLOBIN 10.2 g/dL (12-16); IMMATURE GRANULOCYTES 0.2 % (0-5); LYMPHOCYTES 31.3 % (15-50); MCH 28.6 pg (26.0-34.0); MCHC 32.7 g/dL (31.0-37.0); MCV 87.4 fL (80.0-100.0); MEAN PLATELET VOLUME 11.3 fL (7.4-10.4); MONOCYTES 10.8 % (2-11); NEUTROPHILS 54.2 % (40-80); PLATELET COUNT 203 10x3/uL (130-400); RBC 3.57 10x6/uL (4.00-5.40); WBC 4.8 10x3/uL (4.8-10.8)
[2017-10-13 04:59] LABS: CALC OSMOLALITY 286 mosm/kg (275-300); CARBON DIOXIDE 27.1 mmol/L (21.0-32.0); CHLORIDE - SERUM 107 mmol/L (98-107); CREATININE - SERUM 0.8 mg/dL (0.6-1.3); GLUCOSE 108 mg/dL (74-106); POTASSIUM - SERUM 3.7 mmol/L (3.5-5.1); SODIUM 143 mmol/L (136-145); UREA NITROGEN 15 mg/dL (7-18); eGFR NON AFRICAN AMERICAN 76 mL/min (90-120)
[2017-10-14] VITALS (53 sets, daily range): BP systolic 108–149; BP diastolic 68–91; Ht 157.5 cm; Wt 58.6 kg
[2017-10-14 06:21] LABS: MCH 29.3 pg (26.0-34.0); MCHC 34.1 g/dL (31.0-37.0); MCV 86.1 fL (80.0-100.0); MEAN PLATELET VOLUME 10.8 fL (7.4-10.4)
[2017-10-14 06:25] LABS: HEMATOCRIT 22.9 % (36.0-48.0); HEMOGLOBIN 7.8 g/dL (12-16); RBC 2.66 10x6/uL (4.00-5.40); WBC 9.7 10x3/uL (4.8-10.8)
[2017-10-14 06:44] LABS: ALBUMIN 2.3 g/dL (3.4-5.0); ALKALINE PHOSPHATASE 32 U/L (46-116); ALT (SGPT) 25 U/L (10-68); BILIRUBIN - TOTAL 0.46 mg/dL (0.2-1.3); CALC OSMOLALITY 283 mosm/kg (275-300); CARBON DIOXIDE 24.3 mmol/L (21.0-32.0); CHLORIDE - SERUM 107 mmol/L (98-107); CREATININE - SERUM 0.6 mg/dL (0.6-1.3); GLUCOSE 156 mg/dL (74-106); POTASSIUM - SERUM 3.5 mmol/L (3.5-5.1); PROTEIN - SERUM 4.4 g/dL (6.4-8.2); SODIUM 141 mmol/L (136-145); UREA NITROGEN 12 mg/dL (7-18); eGFR NON AFRICAN AMERICAN > 90 mL/min (90-120)
[2017-10-14 06:45] LABS: CALCIUM 6.9 mg/dL (8.5-10.1)
[2017-10-14 15:56] LABS: BASOPHILS 0 % (0-2); EOSINOPHILS 0 % (0-7); IMMATURE GRANULOCYTES 0.3 % (0-5); LYMPHOCYTES 9.3 % (15-50); MCH 28.9 pg (26.0-34.0); MCHC 34.5 g/dL (31.0-37.0); MEAN PLATELET VOLUME 11.1 fL (7.4-10.4); MONOCYTES 9.9 % (2-11); NEUTROPHILS 80.5 % (40-80); PLATELET COUNT 122 10x3/uL (130-400); RDW 14.8 % (11.5-14.5); WBC 11.3 10x3/uL (4.8-10.8)
[2017-10-14 16:03] LABS: HEMATOCRIT 28.7 % (36.0-48.0); HEMOGLOBIN 9.9 g/dL (12-16); MCV 83.9 fL (80.0-100.0); RBC 3.42 10x6/uL (4.00-5.40)
[2017-10-15] VITALS (24 sets, daily range): BP systolic 102–143; BP diastolic 55–82
[2017-10-15 06:18] LABS: HEMOGLOBIN 9.2 g/dL (12-16); MCH 28.7 pg (26.0-34.0); MCHC 34.1 g/dL (31.0-37.0); MCV 84.1 fL (80.0-100.0); MEAN PLATELET VOLUME 11.2 fL (7.4-10.4); RBC 3.21 10x6/uL (4.00-5.40); RDW 14.9 % (11.5-14.5); WBC 10.7 10x3/uL (4.8-10.8)
[2017-10-15 06:45] LABS: ALBUMIN 2.3 g/dL (3.4-5.0); ALKALINE PHOSPHATASE 43 U/L (46-116); ALT (SGPT) 24 U/L (10-68); BILIRUBIN - TOTAL 0.56 mg/dL (0.2-1.3); CALC OSMOLALITY 279 mosm/kg (275-300); CALCIUM 7.9 mg/dL (8.5-10.1); CARBON DIOXIDE 25.2 mmol/L (21.0-32.0); CHLORIDE - SERUM 105 mmol/L (98-107); CREATININE - SERUM 0.6 mg/dL (0.6-1.3); GLUCOSE 127 mg/dL (74-106); POTASSIUM - SERUM 3.1 mmol/L (3.5-5.1); PROTEIN - SERUM 5.1 g/dL (6.4-8.2); SODIUM 140 mmol/L (136-145); UREA NITROGEN 10 mg/dL (7-18); eGFR NON AFRICAN AMERICAN > 90 mL/min (90-120)
[2017-10-16] VITALS (23 sets, daily range): BP systolic 107–153; BP diastolic 55–77
[2017-10-16 06:56] LABS: HEMATOCRIT 25.8 % (36.0-48.0); HEMOGLOBIN 8.6 g/dL (12-16); MCH 28.2 pg (26.0-34.0); MCHC 33.3 g/dL (31.0-37.0); MCV 84.6 fL (80.0-100.0); MEAN PLATELET VOLUME 11.2 fL (7.4-10.4); RBC 3.05 10x6/uL (4.00-5.40); RDW 15.3 % (11.5-14.5); WBC 8.9 10x3/uL (4.8-10.8)
[2017-10-16 07:20] LABS: ALBUMIN 2.3 g/dL (3.4-5.0); ALKALINE PHOSPHATASE 49 U/L (46-116); ALT (SGPT) 21 U/L (10-68); BILIRUBIN - TOTAL 0.49 mg/dL (0.2-1.3); CALC OSMOLALITY 278 mosm/kg (275-300); CARBON DIOXIDE 24.6 mmol/L (21.0-32.0); CHLORIDE - SERUM 106 mmol/L (98-107); CREATININE - SERUM 0.6 mg/dL (0.6-1.3); GLUCOSE 117 mg/dL (74-106); POTASSIUM - SERUM 3.8 mmol/L (3.5-5.1); PROTEIN - SERUM 4.9 g/dL (6.4-8.2); SODIUM 140 mmol/L (136-145); UREA NITROGEN 10 mg/dL (7-18); eGFR NON AFRICAN AMERICAN > 90 mL/min (90-120)
[2017-10-17] VITALS (24 sets, daily range): BP systolic 116–164; BP diastolic 65–83
[2017-10-17 00:16] LABS: HEMATOCRIT 26.1 % (36.0-48.0); HEMOGLOBIN 8.7 g/dL (12-16); MCH 28.3 pg (26.0-34.0); MCHC 33.3 g/dL (31.0-37.0); MEAN PLATELET VOLUME 10.1 fL (7.4-10.4); RBC 3.07 10x6/uL (4.00-5.40); RDW 15.4 % (11.5-14.5); WBC 6.8 10x3/uL (4.8-10.8)
[2017-10-17 06:31] LABS: HEMATOCRIT 29.5 % (36.0-48.0); HEMOGLOBIN 9.9 g/dL (12-16); MCH 28.6 pg (26.0-34.0); MCHC 33.6 g/dL (31.0-37.0); MCV 85.3 fL (80.0-100.0); MEAN PLATELET VOLUME 10.3 fL (7.4-10.4); RBC 3.46 10x6/uL (4.00-5.40); RDW 15.2 % (11.5-14.5)
[2017-10-17 07:02] LABS: ALBUMIN 2.2 g/dL (3.4-5.0); ALKALINE PHOSPHATASE 51 U/L (46-116); ALT (SGPT) 21 U/L (10-68); BILIRUBIN - TOTAL 0.43 mg/dL (0.2-1.3); CALC OSMOLALITY 274 mosm/kg (275-300); CALCIUM 8.4 mg/dL (8.5-10.1); CARBON DIOXIDE 25.1 mmol/L (21.0-32.0); CHLORIDE - SERUM 105 mmol/L (98-107); CREATININE - SERUM 0.6 mg/dL (0.6-1.3); GLUCOSE 116 mg/dL (74-106); POTASSIUM - SERUM 3.8 mmol/L (3.5-5.1); PROTEIN - SERUM 5.5 g/dL (6.4-8.2); SODIUM 138 mmol/L (136-145); UREA NITROGEN 8 mg/dL (7-18); eGFR NON AFRICAN AMERICAN > 90 mL/min (90-120)
[2017-10-18] VITALS (24 sets, daily range): BP systolic 99–139; BP diastolic 40–78
[2017-10-18 02:50] LABS: HEMATOCRIT 28.2 % (36.0-48.0); HEMOGLOBIN 9.3 g/dL (12-16); MCH 28.3 pg (26.0-34.0); MCV 85.7 fL (80.0-100.0); MEAN PLATELET VOLUME 9.7 fL (7.4-10.4); RBC 3.29 10x6/uL (4.00-5.40); WBC 6.7 10x3/uL (4.8-10.8)
[2017-10-18 06:59] LABS: HEMATOCRIT 29.3 % (36.0-48.0); HEMOGLOBIN 9.9 g/dL (12-16); MCH 28.9 pg (26.0-34.0); MCHC 33.8 g/dL (31.0-37.0); MCV 85.4 fL (80.0-100.0); RBC 3.43 10x6/uL (4.00-5.40)
[2017-10-18 07:22] LABS: WBC 8.6 10x3/uL (4.8-10.8)
[2017-10-18 07:29] LABS: ALBUMIN 2.4 g/dL (3.4-5.0); ALKALINE PHOSPHATASE 65 U/L (46-116); ALT (SGPT) 24 U/L (10-68); BILIRUBIN - TOTAL 0.49 mg/dL (0.2-1.3); CALC OSMOLALITY 273 mosm/kg (275-300); CALCIUM 8.7 mg/dL (8.5-10.1); CARBON DIOXIDE 24.6 mmol/L (21.0-32.0); CHLORIDE - SERUM 102 mmol/L (98-107); CREATININE - SERUM 0.6 mg/dL (0.6-1.3); GLUCOSE 116 mg/dL (74-106); POTASSIUM - SERUM 3.9 mmol/L (3.5-5.1); PROTEIN - SERUM 6.1 g/dL (6.4-8.2); SODIUM 137 mmol/L (136-145); UREA NITROGEN 9 mg/dL (7-18); eGFR NON AFRICAN AMERICAN > 90 mL/min (90-120)
[2017-10-18 20:07] LABS: AEROBE ID Final report (()); RESULT 1 Providencia rettgeri (())
[2017-10-19] VITALS (24 sets, daily range): BP systolic 104–136; BP diastolic 44–78
[2017-10-19 00:59] LABS: HEMATOCRIT 28.2 % (36.0-48.0); HEMOGLOBIN 9.7 g/dL (12-16); MCHC 34.4 g/dL (31.0-37.0); MCV 84.4 fL (80.0-100.0); MEAN PLATELET VOLUME 10.2 fL (7.4-10.4); RBC 3.34 10x6/uL (4.00-5.40); RDW 14.6 % (11.5-14.5); WBC 9.4 10x3/uL (4.8-10.8)
[2017-10-19 06:38] LABS: HEMATOCRIT 28.5 % (36.0-48.0); HEMOGLOBIN 9.5 g/dL (12-16); MCH 28.6 pg (26.0-34.0); MCHC 33.3 g/dL (31.0-37.0); MCV 85.8 fL (80.0-100.0); RBC 3.32 10x6/uL (4.00-5.40); RDW 14.9 % (11.5-14.5); WBC 9.3 10x3/uL (4.8-10.8)
[2017-10-19 07:22] LABS: ALBUMIN 2.4 g/dL (3.4-5.0); ALKALINE PHOSPHATASE 64 U/L (46-116); ALT (SGPT) 20 U/L (10-68); BILIRUBIN - TOTAL 0.38 mg/dL (0.2-1.3); CALC OSMOLALITY 279 mosm/kg (275-300); CALCIUM 8.6 mg/dL (8.5-10.1); CHLORIDE - SERUM 104 mmol/L (98-107); CREATININE - SERUM 0.7 mg/dL (0.6-1.3); GLUCOSE 127 mg/dL (74-106); POTASSIUM - SERUM 4.4 mmol/L (3.5-5.1); SODIUM 140 mmol/L (136-145); UREA NITROGEN 10 mg/dL (7-18); eGFR NON AFRICAN AMERICAN 89 mL/min (90-120)
[2017-10-19 18:07] LABS: AEROBE ID Final report (()); RESULT 1 Providencia rettgeri (())
[2017-10-20] VITALS (15 sets, daily range): BP systolic 103–129; BP diastolic 51–71
[2017-10-20 04:09] LABS: HEMOGLOBIN 9.5 g/dL (12-16); MCHC 32.8 g/dL (31.0-37.0); MCV 85.5 fL (80.0-100.0); MEAN PLATELET VOLUME 9.8 fL (7.4-10.4); RBC 3.39 10x6/uL (4.00-5.40); WBC 9.3 10x3/uL (4.8-10.8)
[2017-10-20 04:44] LABS: ALBUMIN 2.6 g/dL (3.4-5.0); ALKALINE PHOSPHATASE 60 U/L (46-116); ALT (SGPT) 22 U/L (10-68); BILIRUBIN - TOTAL 0.35 mg/dL (0.2-1.3); CALC OSMOLALITY 275 mosm/kg (275-300); CALCIUM 8.9 mg/dL (8.5-10.1); CARBON DIOXIDE 25.5 mmol/L (21.0-32.0); CHLORIDE - SERUM 103 mmol/L (98-107); CREATININE - SERUM 0.7 mg/dL (0.6-1.3); GLUCOSE 116 mg/dL (74-106); PROTEIN - SERUM 6.2 g/dL (6.4-8.2); SODIUM 138 mmol/L (136-145); UREA NITROGEN 10 mg/dL (7-18); eGFR NON AFRICAN AMERICAN 89 mL/min (90-120)
[2017-10-20] MEDS ORDERED: HEMOCYTE PLUS C1 CAP PO (10:45)
[2017-10-20] MEDS ORDERED: CORDARONE200 MG PO (10:46)
[2017-10-20] MEDS ORDERED: CARDIZEM CD240 MG PO (13:11)
[2017-10-20] MEDS ORDERED: CARDIZEM30 MG PO (13:12)
[2017-10-20] MEDS ORDERED: COLACE100 MG PO (13:57)
[2017-10-20] MEDS ORDERED: HYDROCODONE-APA1 TAB PO (13:58)
[2017-10-22 18:09] LABS: AEROBE ID Final report (())
== END 2017-10-20 18:02 | disposition home or self-care (01) | DRG 234 ==
LOC: D.ER 12:40 → EDBD 12:40 → D.M2 16:24 → OBSVTIME 16:24 → D.M2 16:24 → D.EDHOLD 16:24 → D.M2 18:50 → D.CVICU 10-09 10:16
PROVIDERS: Family Medicine; Family Medicine Adult Medicine; Internal Medicine Interventional Cardiology; Internal Medicine Nephrology; Thoracic Surgery (Cardiothoracic Vascular Surgery)
PROC: B2151ZZ Fluoroscopy of Left Heart using Low Osmolar Contrast (ICD-10-PCS; 2017-10-08)
PROC: 4A023N7 Measurement of Cardiac Sampling and Pressure, Left Heart, Percutaneous Approach (ICD-10-PCS; 2017-10-08)
PROC: B4181ZZ Fluoroscopy of Bilateral Renal Arteries using Low Osmolar Contrast (ICD-10-PCS; 2017-10-08)
PROC: B2111ZZ Fluoroscopy of Multiple Coronary Arteries using Low Osmolar Contrast (ICD-10-PCS; principal; 2017-10-08 13:00)
PROC: 021209W Bypass Coronary Artery, Three Arteries from Aorta with Autologous Venous Tissue, Open Approach (ICD-10-PCS; 2017-10-13)
PROC: 02100Z9 Bypass Coronary Artery, One Artery from Left Internal Mammary, Open Approach (ICD-10-PCS; 2017-10-13)
PROC: 06BQ0ZZ Excision of Left Saphenous Vein, Open Approach (ICD-10-PCS; 2017-10-13)
PROC: 5A1221Z Performance of Cardiac Output, Continuous (ICD-10-PCS; 2017-10-13)
PROC: B245ZZ4 Ultrasonography of Left Heart, Transesophageal (ICD-10-PCS; 2017-10-13)
DX: I25.110 Atherosclerotic heart disease of native coronary artery with unstable angina pectoris (principal); N39.0 Urinary tract infection, site not specified; D62 Acute posthemorrhagic anemia; Q05.9 Spina bifida, unspecified; M41.9 Scoliosis, unspecified; Z89.611 Acquired absence of right leg above knee; E78.5 Hyperlipidemia, unspecified; I10 Essential (primary) hypertension; R00.0 Tachycardia, unspecified

== ENCOUNTER → 2017-11-12 09:28 | Outpatient (CLI) | payer MEDICARE, OTHER ==
[2017-10-14 11:03] VITALS: BMI 25.6
[~2017-11-12 09:28] MED LIST: ASPIRIN81 MG PO; CARDIZEM CD240 MG PO; CARDIZEM30 MG PO; COLACE100 MG PO; CORDARONE200 MG PO; CYCLOBENZAPRINE10 MG PO; FLECTOR1 PATCH TRANSDERM; HEMOCYTE PLUS C1 CAP PO; HYDROCODONE-APA1 TAB PO; PRINIVIL10 MG PO; TOPROL XL100 MG PO; ZANTAC300 MG PO; ZOCOR40 MG PO
[2017-11-12 10:25] LABS: ALBUMIN 3.1 g/dL (3.4-5.0); ANION GAP 12.5 mmol/L (8-16); BILIRUBIN - TOTAL 0.17 mg/dL (0.2-1.3); CALCIUM 8.6 mg/dL (8.5-10.1); CARBON DIOXIDE 25.9 mmol/L (21.0-32.0); CREATININE - SERUM 1.1 mg/dL (0.6-1.3); POTASSIUM - SERUM 4.4 mmol/L (3.5-5.1); PROTEIN - SERUM 7.1 g/dL (6.4-8.2)
[2017-11-12 10:28] LABS: HEMATOCRIT 33.1 % (36.0-48.0); HEMOGLOBIN 10.5 g/dL (12-16); MCH 28.1 pg (26.0-34.0); MCHC 31.7 g/dL (31.0-37.0); MCV 88.5 fL (80.0-100.0); MEAN PLATELET VOLUME 10.3 fL (7.4-10.4); RBC 3.74 10x6/uL (4.00-5.40); WBC 5.7 10x3/uL (4.8-10.8)
== END | disposition home or self-care (01) ==
LOC: D.LAB 09:28 → D.RAD 10:00
PROVIDERS: Thoracic Surgery (Cardiothoracic Vascular Surgery)
DX: I48.91 Unspecified atrial fibrillation (principal); I25.10 Atherosclerotic heart disease of native coronary artery without angina pectoris; D64.9 Anemia, unspecified; J90 Pleural effusion, not elsewhere classified

== ENCOUNTER 2019-10-05 18:30 | Outpatient (CLI) | payer MEDICARE, OTHER ==
[2019-04-22 06:16] VITALS: BMI 23.8
[~2019-10-05 18:30] MED LIST changes: +CITRACAL + D E1 EACH PO; +COLON HEALTH PO; +DILTIAZEM 24HR240 M4 PO; +HAIR, SKIN, NAILS PO; +MULTAQ400 MG PO; +PERCOCET 10-321 EAC1 PO; +PLAVIX75 MG PO
== END 2019-10-05 23:59 | disposition home or self-care (01) ==
LOC: D.MAMMO 18:30
PROVIDERS: ATTEND Family Medicine
DX: Z12.31 Encounter for screening mammogram for malignant neoplasm of breast (principal)